=== PATIENT | male | born 1995 | race African-American/Black ===

== ENCOUNTER 2023-02-25 20:17 | Emergency (ER) | payer OTHER, SELFPAY ==
--- NOTE | ~2023-02-25 | XR_ITS ---
XR chest 2V DATE: 02/25/2023 20:42 INDICATION: Left-sided chest pain this evening TECHNIQUE: PA and lateral views COMPARISON: None FINDINGS: Normal heart size. No hilar or mediastinal enlargement. No pulmonary infiltrate or consolid ation, pleural effusion or pulmonary vascular congestion or pneumothorax. IMPRESSION: Negative Reviewed, dictated and finalized at location A. IMPRESSION: Negative
--- NOTE | 2023-02-25 20:18 | ECG_ITS ---
Measurements Intervals [place] Rate: 113 P: 59 MS: 130 QRS: 35 QRSD: 80 T: -9 QT: 312 QTc: 428 Interpretive Statements SINUS TACHYCARDIA BORDERLINE ST-T WAVE ABNORMALITY- ANTEROLAT/INF LEADS BASELINE ARTIFACT- I, II, III, AVR, AVL, AVF, V1-V2 ABNORMAL ECG NO PREVIOUS ECG AVAILABLE FOR COMPARISON Electronically Signed On 02-26-2023 6:18:22 CDT by Cyrus Licona D.O.
[2023-02-25 20:19] VITALS: BP 145/92; PULSE 84; RESP 18; TEMP 37; O2SAT 97
[2023-02-25 20:37] VITALS: PULSE 77
[2023-02-25 20:38] VITALS: O2SAT 100
[2023-02-25 20:41] LABS: Basophils Percent Auto 0.4 % (0.2-1.2); Eosinophils Absolute Auto 0.2 K/mm3 (0-0.3); Eosinophils Percent Auto 2.1 % (0-4.4); Hematocrit 43.8 % (42.0-52.0); Hemoglobin 14.8 g/dL (14.0-18.0); Immature Granulocyte Absolute 0.01 K/mm3 (0.00-0.031); Immature Granulocyte Percent A 0.1 % (0-0.5); Lymphocytes Absolute Auto 2.42 K/mm3 (0.9-3.2); Lymphocytes Percent Auto 33.3 % (18.3-44.2); Mean Corpuscular HGB Conc 33.8 g/dl (32-36); Mean Corpuscular Hemoglobin 30.5 pg (26-34); Mean Corpuscular Volume 90.3 fl (80-100); Mean Platelet Volume 9.3 fl (7.4-10.4); Monocytes Absolute Auto 0.6 K/mm3 (0.1-0.6); Monocytes Percent Auto 8.3 % (2.6-8.5); Neutrophils Absolute Auto 4.1 K/mm3 (1.3-6.7); Neutrophils Percent Auto 55.8 % (45.5-73.1); Platelet Count Result 278 k/mm3 (150-375); Red Blood Count 4.85 M/mm3 (4.6-6.20); Red Cell Distribution Width 11.5 % (11.5-14.5); White Blood Count 7.3 K/mm3 (4.5-10.0)
[2023-02-25 20:51] LABS: Alanine Aminotransferase 23 U/L (6-50); Albumin Level 4.6 g/dL (3.5-5.1); Alkaline Phosphatase 51 U/L (38-126); Anion Gap 6 mmol/L (8-16); Aspartate Amino Transferase 24 U/L (17-59); Bilirubin,Total 0.8 mg/dL (0.2-1.3); Blood Urea Nitrogen 13 mg/dL (9-20); Calcium 9.2 mg/dL (8.4-10.2); Carbon Dioxide 29 mmol/L (22-30); Chloride 105 mmol/L (98-107); Estimated CRCL calculation 132 ml/min; Estimated Glomerular Filt Rate > 60; Glucose 123 mg/dL (65-110); Lipase 63 U/L (23-300); Potassium 3.5 mmol/L (3.4-5.0); Prothrombin Time 13.3 Seconds (11.1-14.7); Sodium 140 mmol/L (137-145)
[2023-02-25 20:52] LABS: Partial Thromboplastin Time 30.8 SECONDS (22.3-36.8)
[2023-02-25 21:02] LABS: Troponin I < 0.012 ng/mL (0.000-0.034)
--- NOTE | 2023-02-25 21:49 | ED.CHESTPAIN ---
HPI - Chest Pain General Chief Complaint: Chest Pain Stated Complaint: cp Time Seen by Provider: 02/25/23 21:01 Source: patient Limitations: no limitations History of Present Illness HPI narrative: Patient is a 27-year-old male present to the emergency department complaining of left-sided chest pain that woke him up from sleep at 7:30 PM, points to his left anterior axillary region and notes that it radiated to his left proximal humerus region, feels like a burning and ache and lasted for 5 minutes and is since resolved and not returned. Patient admits to history of a similar sensation in the past when he slept wrong and has never been evaluated for that. Patient notes nothing was making the pain better or worse when he had it he did not try anything for the pain and it resolved on its own. Patient denies associated nausea, vomiting, shortness of breath, palpitations, numbness, weakness, abdominal pain, diarrhea, melena, medic easy, sore throat, congestion, rash, recent injuries, recent illness, fever, cough, diaphoresis. Patient denies tobacco use. Patient denies seeing a doctor on a regular basis. Patient denies family history of early heart disease. Patient denies unilateral lower extremity swelling or history of blood clots. Patient denies any recent strenuous activity and overall he feels well at this time. Related Data Allergies Allergy/AdvReac Type Severity Reaction Status Date / Time No Known Allergies Allergy Verified 02/25/23 21:39 Review of Systems Review of Systems: A 10 system review of systems was completed on the patient and is negative except for what is stated in the HPI. Nursing and ancillary documentation was reviewed. PMFSH Comments At time of signature, I have reviewed and agree with nursing past medical, surgical, social and family history unless otherwise noted. Please see the nursing chart for further information. There is no relevant family history pertinent to the presenting complaint. Patient admits to vaporizer use of nicotine. Exam Narrative: CONST: No acute distress. Well nourished. HENMT: Head is normocephalic and atraumatic. Moist mucous membranes. No posterior oropharynx erythema. EYES: No conjunctival icterus, injection, or pallor. PERRL. NECK: No meningeal signs. No JVD. RESP: Able to speak in full sentences. Normal respiratory effort. CTAB. CARDIO: Regular rate. Regular rhythm. 2+ DP and radial pulses bilaterally. CHEST: No chest wall tenderness to palpation or crepitus or deformities. No palpable lymphadenopathy of the axillary region. GI: Nondistended. No tenderness to palpation. Soft. : No CVA tenderness to palpation. SKIN: No rashes or lesions noted on exposed skin. NEURO: Oriented x3. Moves all extremities. Sensation intact to light touch throughout bilateral upper extremities. EXTREM: No pedal edema. Left upper extremity range of motion actively intact. 5 out of 5 motor strength in the bilateral upper extremities. PSYCH: Normal affect. Course Vital Signs Vital signs: Vital Signs Temperature 98.6 F 02/25/23 20:19 Pulse Rate 84 02/25/23 20:19 Respiratory Rate 18 02/25/23 20:19 Blood Pressure 145/92 H 02/25/23 20:19 Pulse Oximetry 97 02/25/23 20:19 Oxygen Delivery Room Air 02/25/23 20:19 Temperature 98.6 F 02/25/23 20:19 Pulse Rate 69 02/25/23 22:37 Respiratory Rate 20 02/25/23 22:37 Blood Pressure 120/81 02/25/23 22:37 Pulse Oximetry 99 02/25/23 22:37 Oxygen Delivery Room Air 02/25/23 20:38 MDM - Chest Pain MDM Narrative Medical decision making narrative: Patient presents with the above complaint. Initial vitals are remarkable for no significant abnormalities. Patient appears in no acute distress. Plan discussed: Laboratory analysis, EKG, imaging. Patient was given an aspirin 325 mg p.o. on arrival. Patient is not actively having any chest pain. Will obtain serial troponins x2. PERC criteria applied given
[2023-02-25 22:37] VITALS: BP 120/81; PULSE 69; RESP 20; O2SAT 99
[2023-02-26 01:31] LABS: Troponin I < 0.012 ng/mL (0.000-0.034)
[2023-02-26 01:49] VITALS: BP 130/96; PULSE 85; RESP 18; O2SAT 99
== END 2023-02-26 01:51 | disposition home or self-care (01) ==
PROVIDERS: Emergency Medicine; Emergency Provider Student in an Organized Health Care Education/Training Program
DX: R07.89 Other chest pain (principal); F17.290 Nicotine dependence, other tobacco product, uncomplicated; R00.0 Tachycardia, unspecified; R94.31 Abnormal electrocardiogram [ECG] [EKG]
CPT/HCPCS: 36415; 71046; 80053; 83690; 84484; 85025; 85610; 85730; 93005; 99284

== ENCOUNTER 2023-04-28 13:35 | Emergency (ER) | payer OTHER, SELFPAY ==
[2023-04-28] VITALS (11 sets, daily range): BP systolic 108–128; BP diastolic 75–89; PULSE 63–103; RESP 18–32; TEMP 36.4–36.7; O2SAT 93–100
--- NOTE | 2023-04-28 13:41 | ECG_ITS ---
Measurements Intervals [place] Rate: 74 P: 60 VA: 140 QRS: 44 QRSD: 88 T: 16 QT: 350 QTc: 390 Interpretive Statements SINUS RHYTHM ST ELEVATION IN ANTEROLAT/HIGH LAT LEADS, PROBABLY EARLY REPOLARIZATION BORDERLINE ECG COMPARED TO ECG 02/25/2023 20:22:49 SINUS RHYTHM NOW PRESENT Electronically Signed On 04-28-2023 20:02:00 RESOURCE COORDINATOR by Cyrus Licona D.O.
[2023-04-28 14:53] LABS: Basophils Percent Auto 0.4 % (0.2-1.2); Eosinophils Absolute Auto 0.1 K/mm3 (0-0.3); Eosinophils Percent Auto 1.1 % (0-4.4); Hematocrit 43.3 % (42.0-52.0); Hemoglobin 14.7 g/dL (14.0-18.0); Immature Granulocyte Absolute 0.03 K/mm3 (0.00-0.031); Immature Granulocyte Percent A 0.3 % (0-0.5); Lymphocytes Absolute Auto 1.47 K/mm3 (0.9-3.2); Mean Corpuscular HGB Conc 33.9 g/dl (32-36); Mean Corpuscular Hemoglobin 30.2 pg (26-34); Mean Corpuscular Volume 88.9 fl (80-100); Mean Platelet Volume 9.2 fl (7.4-10.4); Monocytes Absolute Auto 0.7 K/mm3 (0.1-0.6); Monocytes Percent Auto 5.9 % (2.6-8.5); Neutrophils Percent Auto 79.3 % (45.5-73.1); Platelet Count Result 270 k/mm3 (150-375); Red Blood Count 4.87 M/mm3 (4.6-6.20); Red Cell Distribution Width 11.7 % (11.5-14.5); White Blood Count 11.3 K/mm3 (4.5-10.0)
[2023-04-28 15:07] LABS: Alanine Aminotransferase 17 U/L (6-50); Albumin Level 4.3 g/dL (3.5-5.1); Alkaline Phosphatase 55 U/L (38-126); Anion Gap 8 mmol/L (8-16); Aspartate Amino Transferase 23 U/L (17-59); Bilirubin,Total 0.6 mg/dL (0.2-1.3); Blood Urea Nitrogen 8 mg/dL (9-20); Carbon Dioxide 27 mmol/L (22-30); Chloride 105 mmol/L (98-107); Estimated Glomerular Filt Rate > 60; Glucose 123 mg/dL (65-110); Magnesium 1.9 mg/dL (1.6-2.3); Potassium 3.7 mmol/L (3.4-5.0); Sodium 140 mmol/L (137-145)
[2023-04-28 15:19] LABS: Troponin I < 0.012 ng/mL (0.000-0.034)
[2023-04-28 15:37] LABS: Thyroid Stimulating Hormone 0.796 uIU/mL (0.465-4.680)
--- NOTE | 2023-04-28 16:09 | ED.ARRPALP ---
HPI - Arrhythmia/Palpitations General Chief Complaint: Arrhythmia/Palpitations Stated Complaint: elevated heart rate Time Seen by Provider: 04/28/23 14:20 Source: patient Mode of arrival: ambulatory Limitations: no limitations History of Present Illness HPI narrative: Patient is a 27 y/o male who presents to the ED with c/o palpitations. Patient reports he was walking on a bike trail today for about 15 minutes before he began to feel racing heart palpitations. He does note that he was walking at a somewhat brisk pace and does not walk on the trail frequently. He continued walking and noticed persistent palpitations with a burning sensation in his left arm. He then prompted here. He denies the symptoms currently. Denied having any chest pain with exertion, shortness of breath, pain in his left arm, dizziness/ lightheadedness, nausea, vomiting, lower extremity pain or swelling. He has never had symptoms like this before. Denies any recent illness. Denies family history of heart disease or sudden cardiac . Related Data Allergies Allergy/AdvReac Type Severity Reaction Status Date / Time No Known Allergies Allergy Verified 02/25/23 21:39 Review of Systems Review of Systems: CONSTITUTIONAL: Denies fever, chills, or sweats. CARDIOVASCULAR: See HPI RESPIRATORY: Denies cough or dyspnea. GASTROINTESTINAL: Denies abdominal pain, nausea, vomiting, or diarrhea. MUSCULOSKELETAL: Denies back pain, joint pain, or myalgia. All systems reviewed & are unremarkable except as noted in HPI and below Exam Narrative: GENERAL: Well appearing, well-nourished, non-toxic, in no acute distress. HEAD: Normocephalic, atraumatic. NECK: Supple. No adenopathy, no masses. RESPIRATORY: Airway patent, respirations nonlabored. Clear to auscultation bilaterally, no rales, rhonchi, wheezing. CARDIOVASCULAR: Regular rate and rhythm without murmurs, rubs, or gallops. Radial pulses 2+ and equal bilaterally. ABDOMINAL: Soft, nontender, nondistended, no hepatosplenomegaly. Normoactive BS. MUSCULOSKELETAL: Moves all extremities. Strength/ROM intact without gross deformities. No lower extremity edema. No calf tenderness. SKIN: Warm, dry, normal color. No rashes. NEURO: A&O X3. Speech clear. Cranial nerves II-XII grossly intact. Steady gait. No ataxic movements. PSYCHIATRIC: Appropriate mood and affect. Normal interaction. Course Vital Signs Vital signs: Vital Signs Temperature 97.7 F 04/28/23 13:55 Pulse Rate 66 04/28/23 13:55 Respiratory Rate 18 04/28/23 13:55 Blood Pressure 108/82 04/28/23 13:55 Pulse Oximetry 100 04/28/23 13:55 Oxygen Delivery Room Air 04/28/23 13:55 Temperature 97.8 F 04/28/23 17:51 Pulse Rate 101 H 04/28/23 17:51 Respiratory Rate 32 H 04/28/23 17:51 Blood Pressure 119/84 04/28/23 17:51 Pulse Oximetry 94 04/28/23 17:51 Oxygen Delivery Room Air 04/28/23 13:55 MDM - Arrhythmia/Palpitations MDM Narrative Medical decision making narrative: patient presented to ED with brief episode of racing heart palpitations while walking on a bike trail. Patient stable upon arrival. Heart rate in the 60-70s consistently. Asymptomatic by the time of my evaluation. Denies any acute complaints. Denied chest pain or shortness of breath. Basic laboratory studies obtained and fairly unremarkable. Normal electrolytes. Normal magnesium. TSH within normal limits. Minimal leukocytosis noted, however patient denies any recent infectious symptoms. EKG with normal sinus rhythm, nonspecific ST changes, likely early repolarization. Baseline troponin negative. 3HR troponin also negative. Patient updated on lab and imaging findings. He has remained asymptomatic and stable throughout ED stay. No tachycardia noted throughout ED stay. He will be discharged at this time and advised to f/u with PCP and/or Cardiology for further evaluation. Patient given strict return precautions. He agrees w/ the p
[2023-04-28 18:28] LABS: Troponin I < 0.012 ng/mL (0.000-0.034)
== END 2023-04-28 18:57 | disposition home or self-care (01) ==
PROVIDERS: Emergency Provider Physician Assistant
DX: R00.2 Palpitations (principal); R94.31 Abnormal electrocardiogram [ECG] [EKG]
CPT/HCPCS: 36415; 80053; 83735; 84443; 84484; 85025; 93005; 99284

== ENCOUNTER 2023-08-02 09:43 | Emergency (ER) | payer OTHER, SELFPAY ==
--- NOTE | ~2023-08-02 | XR_ITS ---
EXAMINATION: XR chest 1V portable INDICATION: Chest pain and shortness of breath TECHNIQUE: Portable AP chest at 1253 hours COMPARISON: 02/25/2023 FINDINGS: The lungs are free of acute opacities. No pleural effusion or pneumothorax. The cardiomedia stinal silhouette is normal. IMPRESSION: 1. No acute cardiopulmonary abnormality. Reviewed, dictated and finalized at location B. 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
[2023-08-02 09:55] VITALS: BP 140/88; PULSE 97; RESP 16; TEMP 36.6; O2SAT 97
--- NOTE | 2023-08-02 11:21 | ECG_ITS ---
Measurements Intervals [place] Rate: 89 P: 54 PA: 135 QRS: 53 QRSD: 85 T: 15 QT: 333 QTc: 405 Interpretive Statements SINUS RHYTHM EARLY REPOLARIZATION NORMAL ECG COMPARED TO ECG 04/28/2023 13:53:10 NO DIFFERENCE Electronically Signed On 08-02-2023 18:24:47 SUPERVISOR [employer]LOOR ASSEMBLY by José Osman M.D.
[2023-08-02 11:29] VITALS: RESP 17; O2SAT 99
--- NOTE | 2023-08-02 12:32 | ED.GENADULT ---
HPI - General Adult General Chief complaint: Unspecified Stated complaint: all over pain Time Seen by Provider: 08/02/23 11:58 History of Present Illness HPI narrative: 28-year-old male presenting with upper body pain. States that this morning he developed pain in both of his arms as well as his right upper back and his stomach. States that he also felt like his heart was racing. No shortness of breath or lightheadedness or nausea or vomiting. States that he had a bowel movement and his pain improved over the last few hours. He currently denies any pain. No leg swelling. No cough, sore throat, nasal congestion, fevers. States that this has happened before and his PCP is concerned he has IBS. He has an appointment coming up with them in about a month. Related Data Allergies Allergy/AdvReac Type Severity Reaction Status Date / Time No Known Allergies Allergy Verified 02/25/23 21:39 Review of Systems Review of Systems: All systems reviewed & are unremarkable except as noted in HPI and below Exam Narrative: GENERAL: Well-appearing, In no acute distress, pleasant and cooperative HEAD: Normocephalic, atraumatic. EYES: PERRLA and EOMI. ENT: Mucous membranes moist. NECK: Supple. CHEST: Clear to auscultation. No respiratory distress. HEART: Regular rate and rhythm. No murmur heard. ABDOMEN: Soft, nontender, nondistended EXTREMITIES: Normal range of motion. No edema. SKIN: Warm, dry, no rash. NEURO: No focal deficits. Alert and oriented x3. PSYCH: Normal mood and affect. Course Vital Signs Vital signs: Vital Signs Temperature 97.8 F 08/02/23 09:55 Pulse Rate 97 08/02/23 09:55 Respiratory Rate 16 08/02/23 09:55 Blood Pressure 140/88 08/02/23 09:55 Pulse Oximetry 97 08/02/23 09:55 Temperature 98.4 F 08/02/23 13:40 Pulse Rate 63 08/02/23 14:06 Respiratory Rate 15 08/02/23 14:06 Blood Pressure 121/85 08/02/23 14:06 Pulse Oximetry 100 08/02/23 14:06 Medical Decision Making [facility] Narrative Medical decision making narrative: 28-year-old male presenting with upper body pain that has since resolved. Vitals are stable. Exam is unremarkable. EKG per my interpretation shows normal sinus rhythm with benign early repolarization. It appears similar to prior EKGs in our system. Patient is currently asymptomatic, declines pain medications. Will check basic labs, chest x-ray. Chest x-ray blood work without abnormalities. Troponin is undetectable. Patient is resting comfortably on re-evaluation. Continues to deny pain. He has an appointment coming up with his PCP. Feel he is safe for outpatient management. Discussed appropriate supportive care. He is agreeable with this plan. Discharged in stable condition. Differential Diagnosis Differential Diagnosis: Musculoskeletal pain, chest pain, back pain, arm pain Medical Records Medical records reviewed: Yes I reviewed the external patient's medical records. Vital Signs Vital Signs: Vital Signs Temperature 97.8 F 08/02/23 09:55 Pulse Rate 97 08/02/23 09:55 Respiratory Rate 16 08/02/23 09:55 Blood Pressure 140/88 08/02/23 09:55 Pulse Oximetry 97 08/02/23 09:55 Temperature 98.4 F 08/02/23 13:40 Pulse Rate 63 08/02/23 14:06 Respiratory Rate 15 08/02/23 14:06 Blood Pressure 121/85 08/02/23 14:06 Pulse Oximetry 100 08/02/23 14:06 Lab Data Lab results reviewed: Yes I reviewed the patient's lab results. 08/02/23 13:09 08/02/23 13:09 Labs: Lab Results 08/02/23 Range/Units 13:09 WBC 7.6 (4.5-10.0) K/mm3 RBC 5.03 (4.6-6.20) M/mm3 Hgb 15.4 (14.0-18.0) g/dL Hct 45.1 (42.0-52.0) % MCV 89.7 (80-100) fl MCH 30.6 (26-34) pg MCHC 34.1 (32-36) g/dl RDW 11.8 (11.5-14.5) % Plt Count 282 (150-375) k/mm3 MPV 9.3 (7.4-10.4) fl Immature Gran % (Auto) 0.1 (0-0.5) % Neut % (Auto) 61.9 (45.5-73.1) % Lymph % (Auto) 27.8 (
[2023-08-02 13:24] LABS: Basophils Absolute Auto 0.1 K/mm3 (0.0-0.1); Basophils Percent Auto 0.8 % (0.2-1.2); Eosinophils Absolute Auto 0.2 K/mm3 (0-0.3); Eosinophils Percent Auto 2.4 % (0-4.4); Hematocrit 45.1 % (42.0-52.0); Hemoglobin 15.4 g/dL (14.0-18.0); Immature Granulocyte Absolute 0.01 K/mm3 (0.00-0.031); Immature Granulocyte Percent A 0.1 % (0-0.5); Lymphocytes Absolute Auto 2.12 K/mm3 (0.9-3.2); Lymphocytes Percent Auto 27.8 % (18.3-44.2); Mean Corpuscular HGB Conc 34.1 g/dl (32-36); Mean Corpuscular Hemoglobin 30.6 pg (26-34); Mean Corpuscular Volume 89.7 fl (80-100); Mean Platelet Volume 9.3 fl (7.4-10.4); Monocytes Absolute Auto 0.5 K/mm3 (0.1-0.6); Neutrophils Absolute Auto 4.7 K/mm3 (1.3-6.7); Neutrophils Percent Auto 61.9 % (45.5-73.1); Platelet Count Result 282 k/mm3 (150-375); Red Blood Count 5.03 M/mm3 (4.6-6.20); Red Cell Distribution Width 11.8 % (11.5-14.5); White Blood Count 7.6 K/mm3 (4.5-10.0)
[2023-08-02 13:27] LABS: Alanine Aminotransferase 16 U/L (6-50); Albumin Level 4.5 g/dL (3.5-5.1); Alkaline Phosphatase 63 U/L (38-126); Anion Gap 7 mmol/L (8-16); Aspartate Amino Transferase 23 U/L (17-59); Bilirubin,Total 0.6 mg/dL (0.2-1.3); Blood Urea Nitrogen 12 mg/dL (9-20); Calcium 9.5 mg/dL (8.4-10.2); Carbon Dioxide 27 mmol/L (22-30); Chloride 106 mmol/L (98-107); Estimated CRCL calculation 117 ml/min; Estimated Glomerular Filt Rate > 60; Glucose 96 mg/dL (65-110); Lipase 59 U/L (23-300); Potassium 4.2 mmol/L (3.4-5.0); Sodium 140 mmol/L (137-145)
[2023-08-02 13:39] LABS: Troponin I < 0.012 ng/mL (0.000-0.034)
[2023-08-02 13:40] VITALS: BP 120/87; PULSE 69; RESP 15; TEMP 36.9; O2SAT 100
[2023-08-02 14:06] VITALS: BP 121/85; PULSE 63; RESP 15; O2SAT 100
== END 2023-08-02 14:07 | disposition home or self-care (01) ==
PROVIDERS: Emergency Provider Emergency Medicine; PCP Internal Medicine
DX: M79.602 Pain in left arm (principal); M79.601 Pain in right arm; R00.2 Palpitations
CPT/HCPCS: 36415; 71045; 80053; 83690; 84484; 85025; 93005; 99284

== ENCOUNTER 2023-08-18 23:06 | Emergency (ER) | payer OTHER, SELFPAY ==
--- NOTE | ~2023-08-18 | XR_ITS ---
Portable chest x-ray Comparison: 08/02/2023 Clinical History: Dyspnea Findings: Lungs are clear, without focal consolidation or pleural effusion. Cardiomediastinal silho uette is stable. Bones and soft tissues are unremarkable. Impression: Normal chest. Reviewed, dictated and finalized at location . Impression: Normal chest.
[2023-08-18 23:10] VITALS: BP 130/85; PULSE 68; RESP 16; TEMP 36.7; O2SAT 98
[2023-08-18 23:15] VITALS: PULSE 67
--- NOTE | 2023-08-18 23:15 | ECG_ITS ---
Measurements Intervals [place] Rate: 81 P: 67 HI: 140 QRS: 57 QRSD: 89 T: 42 QT: 352 QTc: 409 Interpretive Statements SINUS RHYTHM ST ELEVATION IN DIFFUSE LEADS- PROBABLY EARLY REPOLARIZATION BORDERLINE ECG COMPARED TO ECG 08/02/2023 11:26:13 NO SIGNIFICANT CHANGES Electronically Signed On 08-19-2023 6:21:48 CDT by Cyrus Licona D.O.
[2023-08-18 23:16] VITALS: BP 119/89; PULSE 65; RESP 16; O2SAT 98
--- NOTE | 2023-08-18 23:16 | PC.NURSE ---
Patient states he has bi-lateral arm burning and tingling.
[2023-08-19 00:15] LABS: Basophils Percent Auto 0.5 % (0.2-1.2); Eosinophils Absolute Auto 0.2 K/mm3 (0-0.3); Eosinophils Percent Auto 2.2 % (0-4.4); Hematocrit 40.9 % (42.0-52.0); Immature Granulocyte Absolute 0.02 K/mm3 (0.00-0.031); Immature Granulocyte Percent A 0.2 % (0-0.5); Lymphocytes Absolute Auto 1.93 K/mm3 (0.9-3.2); Lymphocytes Percent Auto 22.1 % (18.3-44.2); Mean Corpuscular HGB Conc 34.2 g/dl (32-36); Mean Corpuscular Hemoglobin 30.4 pg (26-34); Mean Corpuscular Volume 88.9 fl (80-100); Mean Platelet Volume 9.5 fl (7.4-10.4); Monocytes Absolute Auto 0.6 K/mm3 (0.1-0.6); Monocytes Percent Auto 7.2 % (2.6-8.5); Neutrophils Absolute Auto 5.9 K/mm3 (1.3-6.7); Neutrophils Percent Auto 67.8 % (45.5-73.1); Platelet Count Result 266 k/mm3 (150-375); Red Cell Distribution Width 11.7 % (11.5-14.5); White Blood Count 8.7 K/mm3 (4.5-10.0)
[2023-08-19 00:26] LABS: INR 1.1; Partial Thromboplastin Time 32.4 Seconds (22.3-36.8); Prothrombin Time 14.1 Seconds (11.1-14.7)
[2023-08-19 00:31] LABS: Alanine Aminotransferase 13 U/L (6-50); Albumin Level 4.1 g/dL (3.5-5.1); Alkaline Phosphatase 54 U/L (38-126); Anion Gap 5 mmol/L (8-16); Aspartate Amino Transferase 20 U/L (17-59); Bilirubin,Total 0.5 mg/dL (0.2-1.3); Blood Urea Nitrogen 10 mg/dL (9-20); Calcium 9.1 mg/dL (8.4-10.2); Carbon Dioxide 25 mmol/L (22-30); Chloride 107 mmol/L (98-107); Estimated CRCL calculation 116 ml/min; Estimated Glomerular Filt Rate > 60; Glucose 112 mg/dL (65-110); Potassium 3.9 mmol/L (3.4-5.0); Sodium 137 mmol/L (137-145)
[2023-08-19 00:41] LABS: Troponin I < 0.012 ng/mL (0.000-0.034)
--- NOTE | 2023-08-19 00:52 | ED.GENADULT ---
HPI - General Adult General Chief complaint: Unspecified Stated complaint: bilat arms weak and burning, sob Time Seen by Provider: 08/18/23 23:42 Source: patient Mode of arrival: ambulatory Limitations: no limitations History of Present Illness HPI narrative: This is a 28 year old male who presents to the ED with chief complaint of sudden onset bilateral arm pain and burning after waking up this evening. States he woke up to answer a phone call and then shortly after started to develop his symptoms. He states that he also had onset of dyspnea and felt like it was hard to take a deep breath. He states that this went away after about 15 minutes. He states that the arm burning has since resolved. He also had some nausea at the time of symptom onset that has since resolved. Denies any associated chest pain. Denies syncope, vomiting, back pain, cough or recent illness. Related Data Allergies Allergy/AdvReac Type Severity Reaction Status Date / Time No Known Allergies Allergy Verified 02/25/23 21:39 Review of Systems Review of Systems: All systems as dictated in HPI Exam Narrative: GENERAL: Well-appearing, well-nourished, and in no acute distress. HEAD: Normocephalic, atraumatic. EYES: PERRLA and EOMI. ENT: Nares clear, no rhinorrhea or epistaxis. Mucous membranes moist. Oropharynx without tonsillar hypertrophy exudate or other lesions. NECK: Supple. No adenopathy or masses. CHEST: No respiratory distress. Clear to auscultation. No wheezes rales or rhonchi HEART: Regular rate and rhythm. No murmur heard. Normal peripheral pulses. ABDOMEN: Soft, nontender, nondistended, normal active bowel sounds. MSK: Normal range of motion. No edema. SKIN: Warm, dry, no rash. NEURO: Alert and oriented x3. No focal deficits. PSYCH: Normal mood and affect. Course Vital Signs Vital signs: Vital Signs Temperature 98.1 F 08/18/23 23:10 Pulse Rate 68 08/18/23 23:10 Respiratory Rate 16 08/18/23 23:10 Blood Pressure 130/85 08/18/23 23:10 Pulse Oximetry 98 08/18/23 23:10 Oxygen Delivery Room Air 08/18/23 23:10 Temperature 97.9 F 08/19/23 01:13 Pulse Rate 60 08/19/23 01:13 Respiratory Rate 18 08/19/23 01:13 Blood Pressure 115/75 08/19/23 01:13 Pulse Oximetry 99 08/19/23 01:13 Oxygen Delivery Room Air 08/18/23 23:10 Medical Decision Making MDM Narrative Medical decision making narrative: This is a 28-year-old male who presents to the ED with chief complaint of sudden-onset shortness of breath burning and nausea. Vitals are normal. Exam is benign. He is asymptomatic by the time that I evaluate the patient. EKG shows diffuse ST elevation with J-point transition. Consistent with early repolarization. Chest x-ray preliminary is unremarkable. Lab work also unremarkable. Troponin normal. Patient is completely symptom free without intervention at this point would like to go home. Pt will be discharged in stable condition. Return precautions given and supportive measures discussed. Pt is understanding and agreeable with plan for discharge and follow-up with PCP. Vital Signs Vital Signs: Vital Signs Temperature 98.1 F 08/18/23 23:10 Pulse Rate 68 08/18/23 23:10 Respiratory Rate 16 08/18/23 23:10 Blood Pressure 130/85 08/18/23 23:10 Pulse Oximetry 98 08/18/23 23:10 Oxygen Delivery Room Air 08/18/23 23:10 Temperature 97.9 F 08/19/23 01:13 Pulse Rate 60 08/19/23 01:13 Respiratory Rate 18 08/19/23 01:13 Blood Pressure 115/75 08/19/23 01:13 Pulse Oximetry 99 08/19/23 01:13 Oxygen Delivery Room Air 08/18/23 23:10 Lab Data 08/19/23 00:03 08/19/23 00:03 Labs: Lab Results 08/19/23 Range/Units 00:03 WBC 8.7 (4.5-10.0) K/mm3 RBC 4.60 (4.6-6.20) M/mm3 Hgb 14.0 (14.0-18.0) g/dL Hct 40.9 L (42.0-52.0) % MCV 88.9 (80-100) fl MCH 30.4 (26-34) pg MCHC 34.2 (32-36) g/dl RDW 11.7
[2023-08-19 01:13] VITALS: BP 115/75; PULSE 60; RESP 18; TEMP 36.6; O2SAT 99
== END 2023-08-19 01:14 | disposition home or self-care (01) ==
PROVIDERS: Emergency Provider Physician Assistant; PCP Internal Medicine
DX: F41.9 Anxiety disorder, unspecified (principal)
CPT/HCPCS: 36415; 71045; 80053; 84484; 85025; 85610; 85730; 93005; 99284

== ENCOUNTER 2024-02-05 20:29 | Emergency (ER) | payer OTHER, SELFPAY ==
--- NOTE | ~2024-02-05 | XR_ITS ---
Portable chest x-ray Comparison: 08/18/2023 Clinical History: Cough Findings: Lungs are clear, without focal consolidation or pleural effusion. Cardiomediastinal silho uette is stable. Bones and soft tissues are unremarkable. Impression: Normal chest. Reviewed, dictated and finalized at location . Impression: Normal chest.
[2024-02-05 20:33] VITALS: BP 129/84; PULSE 95; RESP 18; TEMP 37.3; O2SAT 100
[2024-02-05 21:19] LABS: Strep Group A RT-PCR DETECTED (Negative)
[2024-02-05 21:34] LABS: Influenza A QL RT-PCR Negative (Negative); Influenza B QL RT-PCR Negative (Negative); RSV RNA, RT-PCR Negative (Negative); SARS-CoV-2 RNA PCR Negative (Negative)
[2024-02-05 23:02] VITALS: BP 121/90; PULSE 84; RESP 18; O2SAT 100
--- NOTE | 2024-02-05 23:08 | ED.GENADULT ---
HPI - General Adult General Chief complaint: Upper Respiratory Infection Stated complaint: sore throat Time Seen by Provider: 02/05/24 20:33 History of Present Illness HPI narrative: This is a 28-year-old male presenting ED with chief complaint of sore throat. He has been having progressively worse pain on swallowing over last several days. He is still handling his own secretions. He denies fevers nausea or vomiting. No shortness of breath. Believes he has strep throat Related Data Allergies Allergy/AdvReac Type Severity Reaction Status Date / Time No Known Allergies Allergy Verified 02/05/24 21:02 Exam Narrative: APPEARANCE: No apparent distress. Head: Bilateral erythematous tonsils with exudates, uvula is midline EYES: EOMI, NOSE: Atraumatic NECK: Trachea midline RESPIRATORY: No increased rate of breathing, CTAB CARDIOVASCULAR: RRR, ABDOMINAL: Non-distended MUSCULOSKELETAl: No obvious deformities NEURO: Alert. Moving 4/4 extremities SKIN:: Warm, dry. Normal color PSYCHIATRIC: Normal affect Course Vital Signs Vital signs: Vital Signs Temperature 99.1 F 02/05/24 20:33 Pulse Rate 95 02/05/24 20:33 Respiratory Rate 18 02/05/24 20:33 Blood Pressure 129/84 02/05/24 20:33 Pulse Oximetry 100 02/05/24 20:33 Oxygen Delivery Room Air 02/05/24 20:33 Temperature 99.1 F 02/05/24 20:33 Pulse Rate 84 02/05/24 23:02 Respiratory Rate 18 02/05/24 23:02 Blood Pressure 121/90 02/05/24 23:02 Pulse Oximetry 100 02/05/24 23:02 Oxygen Delivery Room Air 02/05/24 20:33 Medical Decision Making MDM Narrative Medical decision making narrative: -Course: 20-year-old male presenting with sore throat. Strep positive. Patient discharged with return precautions and pcp f/u -DDX includes but is not limited to: Strep throat, viral pharyngitis, mOno -Interventions: Amoxicillin, dexamethasoneToradol, Tylenol -Shared decision making / Disposition: discharge -RX amoxicillin, Motrin, Tylenol Vital Signs Vital Signs: Vital Signs Temperature 99.1 F 02/05/24 20:33 Pulse Rate 95 02/05/24 20:33 Respiratory Rate 18 02/05/24 20:33 Blood Pressure 129/84 02/05/24 20:33 Pulse Oximetry 100 02/05/24 20:33 Oxygen Delivery Room Air 02/05/24 20:33 Temperature 99.1 F 02/05/24 20:33 Pulse Rate 84 02/05/24 23:02 Respiratory Rate 18 02/05/24 23:02 Blood Pressure 121/90 02/05/24 23:02 Pulse Oximetry 100 02/05/24 23:02 Oxygen Delivery Room Air 02/05/24 20:33 Lab Data Labs: Lab Results 02/05/24 Range/Units 20:39 Influenza A (RT-PCR) Negative (Negative) Influenza B (RT-PCR) Negative (Negative) RSV (RT-PCR) Negative (Negative) SARS-CoV-2 RNA (RT-PCR) Negative (Negative) Group A Strep (PCR) Detected A (Negative) Discharge Plan Discharge Clinical Impression: Strep pharyngitis Patient Disposition: Home, Self-Care Condition: Stable Instructions: Antibiotic Form, Strep Throat (ED) Additional Instructions: Please take amoxicillin as directed. Please take Motrin Tylenol for pain. If you develop difficulty swallowing her own secretions shortness of breath or feel like her throat is getting worse please return to the ED immediately. Prescriptions: New amoxicillin 500 mg capsule 500 mg PO Q12H Qty: 20 0RF Follow-up/Referrals: Naun,MD Claudia [Primary Care Provider] -
[2024-02-05] MEDS: KETOROLAC 30 MG/ML VIAL (*BKC) IM (23:23)
[2024-02-05] MEDS: ACETAMINOPHEN 500 MG TABLET 1000 MG PO (23:24)
[2024-02-05] MEDS: dexAMETHasone SOD PHOS INJ 10 MG/ML 1 ML VIAL IM (23:24)
[2024-02-05] MEDS: AMOXICILLIN 500 MG CAPSULE PO (23:24)
== END 2024-02-05 23:29 | disposition home or self-care (01) ==
PROVIDERS: Emergency Provider Emergency Medicine; PCP Internal Medicine
DX: J02.0 Streptococcal pharyngitis (principal); Z20.822 Contact with and (suspected) exposure to COVID-19
CPT/HCPCS: 71045; 87637; 87651; 96372; 99284; A9270; J1100; J1885

== ENCOUNTER 2024-08-18 21:29 | Emergency (ER) | payer OTHER, SELFPAY ==
--- OUTSIDE RECORDS SUMMARY | 2024-08-18 21:30 | XMS_ITS | Clinical Summary ---
Author Organization [address] Address [address] [place] [address] Care Team Providers Care Chef Concierge Name Role Phone No, Physician Primary Care Provider [phone] Allergies No known active allergies Medications amoxicillin-cla vulanate (AUGMENTIN) 875-125 mg per tablet Take 1 tablet by mouth every 12 (twelve) hours 14 tablet 2 Active meclizine (ANTIVERT) 25 mg tablet Take 1 tablet (25 mg total) by mouth 3 (three) times a day as needed for dizziness 30 tablet 2 Active ondansetron (ZOFRAN) 4 mg tablet Take 1 tablet (4 mg total) by mouth every 6 (six) hours as needed for nausea or vomiting 28 tablet 2 Active Social History Tobacco Use Types Packs/Day Years Used Date Smoking Tobacco: Never Assessed Personal Safety Answer Date Recorded Getting School Help Needed Not on file 05/18 Sex and Gender Information Value Date Recorded Sex Assigned at Not on file 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 Gender Identity Not on file Sexual Orientation Not on file Last Filed Vital Signs Vital Sign Reading Time Taken Comments Blood Pressure 109/77 09/22/2021 12:08 PM CDT Pulse 60 09/22/2021 12:08 PM CDT Temperature 37 C (98.6 F) 09/22/2021 12:08 PM CDT Respiratory Rate 20 09/22/2021 12:08 PM CDT Oxygen Saturation 100% 09/22/2021 12:08 PM CDT Inhaled Oxygen Concentration - - Weight 86.9 kg (191 lb 9.3 oz) 09/22/2021 12:08 PM CDT Height 172.7 cm (5' 8 ) 09/22/2021 12:08 PM CDT Body Mass Index 29.13 09/22/2021 12:08 PM CDT Plan of Treatment Health Maintenance Due Date Last Done Comments Depression Screening 1995 Hepatitis C Screening 1995 Varicella Vaccines (2 of 2 - 2-dose childhood series) 1999 04/04/1998 DTaP/Tdap/Td Vaccine (5 - Tdap) 2006 04/04/1998, 01/10/1996, 1995, Additional history exists Regular Well Visit/Exam 18-64 2013 Influenza Vaccine (#1) 2024 Hepatitis B Screening Completed 04/26/1996 , 1995, 1995 HPV Vaccines Aged Out No longer eligi ble based on patient's age to complete this topic Pneumococcal vaccine <65 Aged Out No longer eligible based on patient's age to complete this topic Insurance [id number] [place] [address] [facility] Care Teams Chef Concierge Relationship Specialty Start Date End Date No, Physician PCP - General 11/01/19
--- OUTSIDE RECORDS SUMMARY | 2024-08-18 21:30 | XMS_ITS | Referral Summary ---
Author Organization [address] Address [address] [place] [address] Care Team Providers Care Tech Ed/Woodshop Teacher Name Role Phone No, Physician Primary Care Provider [phone] Allergies No known active allergies Medications amoxicillin-cla [...] on file Legal Sex Male 7:00 PM MANAGER SHAREPOINT Gender Identity Not on file Sexual Orientation [...] 09/22/2021 12:08 PM CDT Plan of Treatment Not on file Insurance Care Teams Tech Ed/Woodshop Teacher Relationship Specialty Start Date End Date No, Physician PCP - General 11/01/19
--- OUTSIDE RECORDS SUMMARY | 2024-08-18 21:30 | XMS_ITS | Encounter Summary ---
Author Organization [facility] Address [address] [place] [address] Care Team Providers Care Site Acquisition Manager Name Role Phone Claudia Magallon MD Primary Care Provider [phone] Encounter Details Date Type Department Care Team (Late st Contact Info) Description 10/25/2023 Dayjet Message Enc [address] [address] [address] [place] [address] [facility] Provider transportation Social History Tobacco Use Types Packs/Day Years Used Date Smoking Tobacco: Never Smokeless Tobacco: Never Comments:Counseled by Dr Madiha flores. Alcohol Use Standard Drinks/Week Comments No 0 (1 standard drink = 0.6 oz pur e alcohol) PHQ-2 Answer Date Recorded Patient Health Questionnaire-2 Score 0 10/11/2023 Sex and Gender Information Value Date Recorded Sex Assigned at Male 08/09/2023 8:17 AM GROUP MARKETING VP Legal Sex Male 5:04 PM CDT Gender Identity Male 08/09/2023 8:17 AM GROUP MARKETING VP Sexual Orientation Straight 08/09/2023 8: 17 AM GROUP MARKETING VP documented as of this encounter Plan of Treatment Upcoming Encounters Date Type Department Care Team (Late st Contact Info) Description 08/22/2024 3:40 PM CDT [facility] [address] [place], [place] [id number] Claudia Magallon MD [address] [place] [address] [address] [place], [place] [id number] documented as of this encounter Visit Diagnoses Not on filedocumented in this encounter Additional Health Concerns Assessment Noted Time PHQ-9 Depression Total Score: 1 10/11/19 10:23 AM CDT documented as of this encounter Care Teams Site Acquisition Manager Relationship Specialty Start Date End Date Claudia Magallon MD [address] [address] PCP - General INTERNAL MEDICINE 08/13/23 documented as of this encounter
--- OUTSIDE RECORDS SUMMARY | 2024-08-18 21:30 | XMS_ITS | Clinical Summary ---
Author Organization [facility] Address [address] [place] [address] Care Team Providers Care Aquatics Lifeguard Name Role Phone Claudia Magallon MD Primary Care Provider Allergies Active Allergy Reactions Criticality Noted Date Comments Pork-Derived Products GI Upset 06/16/2017 Medications FLUoxetine (PROZAC) 10 MG capsuleIndications :Mild episode of recurrent major depressive disorder,Anxiety Take 1 capsule (10 mg total) by mouth daily. 90 capsule 4 Active omeprazole (PRILOSEC) 40 MG capsuleIndications :Gastroesophageal reflux disease without esophagitis Take 1 capsule (40 mg total) by mouth daily. 90 capsule 4 Active ondansetron (ZOFRAN-ODT) 4 MG disintegrating tabletIndications: Vertigo,Nausea and vomiting, unspecified vomiting type DISSOLVE 1 TABLET(4 MG) ON THE TONGUE EVERY 6 HOURS NEEDED 30 tablet 4 Active meclizine (ANTIVERT) 25 MG tabletIndications: Vertigo TAKE 1 TABLET(25 MG) BY MOUTH THREE TIMES DAILY NEEDED FOR DIZZINESS 30 tablet 4 Active Active Problems No known active problems Encounters Date Type Department Care Team Description 05/26/2024 2:20 PM SUPERVISOR RIPRAP PLACING [facility] [place] [address] [facility] [address] [place] [address] Audrey Albrecht, MARTINE Dizziness; Vomiting 05/26/2024 Orders Only [place] [address] [facility] [address] [place] [address] Claudia Magallon MD 05/26/2024 Telephone [facility] Multispecialty Care - [address] [facility] [address] [place] [address] Claudia Magallon MD Medication 05/26/2024 Travel from Last 3 Months Immunizations Name Administration Dates Next Due Dtap 04/04/1998 Dtp 01/10/1996,1995,1995 Hepatitis B (Generic Peds) 04/26/1996,1995 ,1995 Hib (Generic) 04/04/1998,01/10/1996,1995 ,1995 MMR 08/18/1996 Opv 04/04/1998,1995,1995 Tdap (Generic) 11/17/2018 Varicella (Generic) 04/04/1998 Family History Medical History Relation Comments Heart Disease Father None Mother Relation Status Comments Father Alive Mother Alive Social History Tobacco Use Types Packs/Day Years Used Date Smoking Tobacco: Never Smokeless Tobacco: Never Tobacco Cessation:Counseling Given: Not Answered Comments:Counseled by Dr Magallon. Alcohol Use Standard Drinks/Week Comments No 0 (1 standard drink = 0.6 oz pur e alcohol) PHQ-2 Answer Date Recorded Patient Health Questionnaire-2 Score 0 10/11/2023 Sex and Gender Information Value Date Recorded Sex Assigned at Male 08/09/2023 8:17 AM SUPERVISOR RIPRAP PLACING Legal Sex Male 5:04 PM CDT Gender Identity Male 08/09/2023 8:17 AM SUPERVISOR RIPRAP PLACING Sexual Orientation Straight 08/09/2023 8: 17 AM SUPERVISOR RIPRAP PLACING Last Filed Vital Signs Vital Sign Reading Time Taken Comments Blood Pressure 115/82 05/26/2024 1:51 PM SUPERVISOR RIPRAP PLACING Pulse 75 05/26/2024 1:51 PM SUPERVISOR RIPRAP PLACING Temperature 36.8 C (98.3 F) 05/26/2024 1:51 PM SUPERVISOR RIPRAP PLACING Respiratory Rate 18 05/26/2024 1:51 PM SUPERVISOR RIPRAP PLACING Oxygen Saturation 97% 05/26/2024 1:51 PM SUPERVISOR RIPRAP PLACING Inhaled Oxygen Concentration - - Weight 93 kg (205 lb) 05/26/2024 1:51 PM SUPERVISOR RIPRAP PLACING Height 172.7 cm (5' 8 ) 05/26/2024 1:51 PM SUPERVISOR RIPRAP PLACING Body Mass Index 31.17 05/26/2024 1:51 PM SUPERVISOR RIPRAP PLACING Plan of Treatment Upcoming Encounters Date Type Department Care Team (Late st Contact Info) Description 08/22/2024 3:40 PM CDT Office Visit [facility] Multispecialty Care - [place] [address] [address] [address] [place] [address] Claudia aMgallon MD 118[address] [facility] [address] [place] [address] Health Maintenance Due Date Last Done Comments COVID-19 Vaccine ( season) 2024 Influenza Adult (#1) 2024 PHQ-2 (Physician [place]) 06/07/2024 10/11/2023 Annual Physical 08/12/2024 08/13/2023 DTaP, Tdap and Td Vaccines (3 - Td or Tdap) 11/17/2028 11/17/2018, 04/04/1998, 01/10/1996, Additional history exists Hepatitis B Vaccines Completed 04/26/1996, 1995, 1995 Hepatitis C Completed 08/13/2023 HPV Vaccines Aged Out No longer eligi ble based on patient's age to complete this topic Meningococcal B Vaccine Aged Out No l onger eligible based on patient's age to complete this topic Meningococcal Vaccine Aged Out No flaco gab eligible based on patient's age to complete this topic Pneumococcal Vaccine: Pediatrics (0 to 5 Years) and At-Risk Patients (6 to 64 Years) Aged Out No longer eligible based on patient's age to complete this topic RSV Immunizations Under 20 Months Aged Out No longer eligible based on patient's age to complete this topic Procedures Procedure Name Priority Date/Time Associated Diagnosis Comments HEPATITIS C ANTIBODY Routine 08/13/2023 7:35 AM SUPERVISOR RIPRAP PLACING Annual physical exam General medical exam Establishing care with new doctor, encounter for Encounter for hepatitis C screening test for low risk patient from Last 3 Months or Most Recently Relevant to Health Maintenance Results * HEPATITIS C ANTIBODY (08/13/2023 7:35 AM SUPERVISOR RIPRAP PLACING) HEPATITIS C AB NON-REACTI VE NON-REACT ASHWINI 08/13/2023 6:25 PM SUPERVISOR RIPRAP PLACING [facility] Comment: ANTIBODIES TO HCV NOT DETECTED. DOES NOT EXCLUDE THE POSSIBILITY OF EXPOSURE TO HCV. 08/13/2023 7:35 AM SUPERVISOR RIPRAP PLACING Claudia Magallon MD LABORATORY Final Result [facility] [address] [place] [address], [place] [phone] [id number] from Last 3 Months or Most Recently Relevant to Health Maintenance Insurance [address] [place] [address] [employer] Care Teams Aquatics Lifeguard Relationship Specialty Start Date End Date Claudia Magallon MD [address] [facility] [address] [place] [address] PCP - General INTERNAL MEDICINE 08/13/23
--- OUTSIDE RECORDS SUMMARY | 2024-08-18 21:30 | XMS_ITS | Encounter Summary ---
Author Organization [facility] Address [address] [place] [address] Care Team Providers Care Residential Direct Support Professional Name Role Phone Claudia Magallon MD Primary Care Provider [phone] Encounter Details Date Type Department Care Team (Late st Contact Info) Description 09/30/2023 MyChart Message Enc [address] [address] Claudia Magallon MD [address] [place] [address] [phone] Hello Social History Tobacco Use Types Packs/Day Years Used Date Smoking Tobacco: Never Smokeless Tobacco: Never Comments:Counseled by Dr Madiha flores. Alcohol Use Standard Drinks/Week Comments No 0 (1 standard drink = 0.6 oz pur e alcohol) PHQ-2 Answer Date Recorded Patient Health Questionnaire-2 Score 4 08/13/2023 Sex and Gender Information Value Date Recorded Sex Assigned at Male 08/09/2023 8:17 AM HEAT TREATING FURNACE TENDER Legal Sex Male 5:04 PM CDT Gender Identity Male 08/09/2023 8:17 AM HEAT TREATING FURNACE TENDER Sexual Orientation Straight 08/09/2023 8: 17 AM HEAT TREATING FURNACE TENDER documented as of this encounter Plan of Treatment Upcoming Encounters Date Type Department Care Team (Late st Contact Info) Description 08/22/2024 3:40 PM CDT [facility] [address] [address] [place], [place] [id number] Claudia Magallon MD [address] [address] documented as of this encounter Visit Diagnoses Not on filedocumented in this encounter Additional Health Concerns Assessment Noted Time PHQ-9 Depression Total Score: 11 08/12/ 024 7:27 AM HEAT TREATING FURNACE TENDER documented as of this encounter Care Teams Residential Direct Support Professional Relationship Specialty Start Date End Date Claudia Magallon MD [address] [address] PCP - General INTERNAL MEDICINE 08/13/23 documented as of this encounter
--- OUTSIDE RECORDS SUMMARY | 2024-08-18 21:30 | XMS_ITS | Encounter Summary ---
Author Organization [facility] Address [address] [place] [address] Care Team Providers Care Ingredient Scaler Helper Name Role Phone Claudia Magallon MD Primary Care Provider [phone] Encounter Details Date Type Department Care Team (Late st Contact Info) Description 08/16/2023 MyChart Message Enc [address] [address] Claudia Magallon MD [address] [place] [phone] Hello Social History Tobacco Use Types Packs/Day Years Used Date Smoking Tobacco: Never Smokeless Tobacco: Never Comments:Counseled by Dr Madiha flores. Alcohol Use Standard Drinks/Week Comments No 0 (1 standard drink = 0.6 oz pur e alcohol) PHQ-2 Answer Date Recorded Patient Health Questionnaire-2 Score 4 08/13/2023 Sex and Gender Information Value Date Recorded Sex Assigned at Male 08/09/2023 8:17 AM DIRECTOR BIOLOGY Legal Sex Male 5:04 PM CDT Gender Identity Male 08/09/2023 8:17 AM DIRECTOR BIOLOGY Sexual Orientation Straight 08/09/2023 8: 17 AM DIRECTOR BIOLOGY documented as of this encounter Plan of Treatment Upcoming Encounters Date Type Department Care Team (Late st Contact Info) Description 08/22/2024 3:40 PM CDT [facility] [address] [place], [place] [phone] Claudia Magallon MD [address] [address] documented as of this encounter Visit Diagnoses Not on filedocumented in this encounter Additional Health Concerns Assessment Noted Time PHQ-9 Depression Total Score: 11 08/12/ 024 7:27 AM DIRECTOR BIOLOGY documented as of this encounter Care Teams Ingredient Scaler Helper Relationship Specialty Start Date End Date Claudia Magallon MD [address] [address] PCP - General INTERNAL MEDICINE 08/13/23 documented as of this encounter
[2024-08-18 21:56] VITALS: BP 132/91; PULSE 115; RESP 18; TEMP 36.8; O2SAT 97
--- NOTE | 2024-08-19 03:54 | PC.NURSE ---
Called x2 by this RN for updated set of VS w no response. Pt marked at [facility]BS on tracker.
--- OUTSIDE RECORDS SUMMARY | 2024-08-19 04:06 | XMS_ITS | Clinical Summary ---
Author Organization [facility] Address [address] [place] [address] Care Team Providers Care Rn Cvicu Name Role Phone Claudia Magallon MD Primary Care Provider [phone] Allergies Active Allergy Reactions Criticality Noted Date [...] Department Care Team Description 05/26/2024 2:20 PM MEMBER OF PARLIAMENT [facility] [place] [address] [facility] [address] [place] [address] Audrey Albrecht, MARTINE Dizziness; Vomiting 05/26/2024 Orders Only [place] [address] [facility] [address] [place] [address] Claudia Magallon MD 05/26/2024 Telephone [facility] Medical Group Multispecialty Care - [address] [facility] [address] [place] [address] Claudia Magallon MD Medication 05/26/2024 Travel from [...] Sex Assigned at Male 08/09/2023 8:17 AM MEMBER OF PARLIAMENT Legal Sex Male 5:04 PM CDT Gender Identity Male 08/09/2023 8:17 AM MEMBER OF PARLIAMENT Sexual Orientation Straight 08/09/2023 8: 17 AM MEMBER OF PARLIAMENT Last Filed Vital Signs Vital Sign Reading Time Taken Comments Blood Pressure 115/82 05/26/2024 1:51 PM MEMBER OF PARLIAMENT Pulse 75 05/26/2024 1:51 PM MEMBER OF PARLIAMENT Temperature 36.8 C (98.3 F) 05/26/2024 1:51 PM MEMBER OF PARLIAMENT Respiratory Rate 18 05/26/2024 1:51 PM MEMBER OF PARLIAMENT Oxygen Saturation 97% 05/26/2024 1:51 PM MEMBER OF PARLIAMENT Inhaled Oxygen Concentration - - Weight 93 kg (205 lb) 05/26/2024 1:51 PM MEMBER OF PARLIAMENT Height 172.7 cm (5' 8 ) 05/26/2024 1:51 PM MEMBER OF PARLIAMENT Body Mass Index 31.17 05/26/2024 1:51 PM MEMBER OF PARLIAMENT Plan of Treatment Upcoming Encounters Date Type Department Care Team (Late st Contact Info) Description 08/22/2024 3:40 PM CDT Office Visit [facility] Medical Group Multispecialty Care - [place] [address] [address] [address] [place] [address] Claudia Magallon MD 1188 [facility] [address] [place] [address] Health Maintenance Due Date Last Done Comments COVID-19 Vaccine ( season) 2024 Influenza Adult (#1) 2024 PHQ-2 (Physician [place]) 06/07/2024 10/11/2023 Annual Physical 08/12/2024 08/13/2023 DTaP, [...] HEPATITIS C ANTIBODY Routine 08/13/2023 7:35 AM MEMBER OF PARLIAMENT Annual physical exam General medical exam Establishing care with new doctor, encounter for Encounter for hepatitis C screening test for low risk patient from Last 3 Months or Most Recently Relevant to Health Maintenance Results * HEPATITIS C ANTIBODY (08/13/2023 7:35 AM MEMBER OF PARLIAMENT) HEPATITIS C AB NON-REACTI VE NON-REACT ASHWINI 08/13/2023 6:25 PM MEMBER OF PARLIAMENT [facility] Comment: ANTIBODIES TO HCV NOT DETECTED. DOES NOT EXCLUDE THE POSSIBILITY OF EXPOSURE TO HCV. 08/13/2023 7:35 AM MEMBER OF PARLIAMENT Claudia Magallon MD LABORATORY Final Result [facility] [address] [place] [address], [place] [phone] [id number] from Last 3 Months or Most Recently Relevant to Health Maintenance Insurance [address] [place] [address] [employer] Care Teams Rn Cvicu Relationship Specialty Start Date End Date Claudia Magallon MD 1188 [facility] [address] [place] [address] PCP - General INTERNAL MEDICINE 08/13/23
--- OUTSIDE RECORDS SUMMARY | 2024-08-19 04:06 | XMS_ITS | Referral Summary ---
Author Organization [address] Address [address] [place] [address] Care Team Providers Care Business Development Director Name Role Phone No, Physician Primary Care Provider [phone] Allergies No known active allergies Medications amoxicillin-cla [...] on file Legal Sex Male 7:00 PM CONTINUOUS WAVE OPERATOR Gender Identity Not on file Sexual Orientation [...] Treatment Not on file Insurance Care Teams Business Development Director Relationship Specialty Start Date End Date No, Physician PCP - General 11/01/19
--- OUTSIDE RECORDS SUMMARY | 2024-08-19 04:06 | XMS_ITS | Encounter Summary ---
Author Organization [facility] Address [address] [place] [address] Care Team Providers Care Tobacco Educator Name Role Phone Claudia Magallon MD Primary Care Provider [phone] Encounter Details Date Type Department Care Team (Late st Contact Info) Description 08/16/2023 MyChart Message Enc [address] [address] Caludia Magallon MD [address] [place] [phone] Hello Social History Tobacco Use Types Packs/Day Years Used Date Smoking Tobacco: Never Smokeless Tobacco: Never Comments:Counseled by Dr Madiha flores. Alcohol Use Standard Drinks/Week Comments No 0 (1 standard drink = 0.6 oz pur e alcohol) PHQ-2 Answer Date Recorded Patient Health Questionnaire-2 Score 4 08/13/2023 Sex and Gender Information Value Date Recorded Sex Assigned at Male 08/09/2023 8:17 AM APPLICATIONS MANAGER Legal Sex Male 5:04 PM CDT Gender Identity Male 08/09/2023 8:17 AM APPLICATIONS MANAGER Sexual Orientation Straight 08/09/2023 8: 17 AM APPLICATIONS MANAGER documented as of this encounter Plan of Treatment Upcoming Encounters Date Type Department Care Team (Late st Contact Info) Description 08/22/2024 3:40 PM CD[facility] [address] [place], [place] [address] Claudia Magallon MD [address] [address] documented as of this encounter Visit Diagnoses Not on filedocumented in this encounter Additional Health Concerns Assessment Noted Time PHQ-9 Depression Total Score: 11 08/12/ 024 7:27 AM APPLICATIONS MANAGER documented as of this encounter Care Teams Tobacco Educator Relationship Specialty Start Date End Date Claudia Magallon MD [address] [address] PCP - General INTERNAL MEDICINE 08/13/23 documented as of this encounter
--- OUTSIDE RECORDS SUMMARY | 2024-08-19 04:06 | XMS_ITS | Clinical Summary ---
Author Organization [address] Address [address] [place] [address] Care Team Providers Care Supervisor Keymodule Assembly Name Role Phone No, Physician Primary Care Provider [phone] Allergies No known active allergies Medications amoxicillin-cla [...] on file Legal Sex Male 7:00 PM SUPERVISOR METAL FURNITURE ASSEMBLY Gender Identity Not on file Sexual Orientation [...] patient's age to complete this topic Insurance [id number] [place] [address] [facility] Care Teams Supervisor Keymodule Assembly Relationship Specialty Start Date End Date No, Physician PCP - General 11/01/19
--- OUTSIDE RECORDS SUMMARY | 2024-08-19 04:06 | XMS_ITS | Encounter Summary ---
Author Organization [facility] Address [address] [place] [address] Care Team Providers Care Spanish Interpreter/Translator Name Role Phone Claudia Magallon MD Primary Care Provider [phone] Encounter Details Date Type Department Care Team (Late st Contact Info) Description 09/30/2023 MyChart Message Enc [address] [address] Claudia Magallon MD [address] [place] [address] [phone] Hello Social History Tobacco Use Types Packs/Day Years Used Date Smoking Tobacco: Never Smokeless Tobacco: Never Comments:Counseled by Dr Madiha flores. Alcohol Use Standard Drinks/Week Comments No 0 (1 standard drink = 0.6 oz pur e alcohol) PHQ-2 Answer Date Recorded Patient Health Questionnaire-2 Score 4 08/13/2023 Sex and Gender Information Value Date Recorded Sex Assigned at Male 08/09/2023 8:17 AM CUT OUT MACHINE OPERATOR Legal Sex Male 5:04 PM CDT Gender Identity Male 08/09/2023 8:17 AM CUT OUT MACHINE OPERATOR Sexual Orientation Straight 08/09/2023 8: 17 AM CUT OUT MACHINE OPERATOR documented as of this encounter Plan of Treatment Upcoming Encounters Date Type Department Care Team (Late st Contact Info) Description 08/22/2024 3:40 PM CDT [facility] [address] [address] [place], [place] [id number] Claudia Magallon MD [address] [address] documented as of this encounter Visit Diagnoses Not on filedocumented in this encounter Additional Health Concerns Assessment Noted Time PHQ-9 Depression Total Score: 11 08/12/ 024 7:27 AM CUT OUT MACHINE OPERATOR documented as of this encounter Care Teams Spanish Interpreter/Translator Relationship Specialty Start Date End Date Claudia Magallon MD [address] [address] PCP - General INTERNAL MEDICINE 08/13/23 documented as of this encounter
--- OUTSIDE RECORDS SUMMARY | 2024-08-19 04:06 | XMS_ITS | Encounter Summary ---
Author Organization [facility] Address [address] [place] [id number] Care Team Providers Care Supervisor Instrument Repair Name Role Phone Claudia Magallon MD Primary Care Provider [phone] Encounter Details Date Type Department Care Team (Late st Contact Info) Description 10/25/2023 [facility] Message Enc [address] [address] [address] [place] [address] [facility] Provider [...] Sex Assigned at Male 08/09/2023 8:17 AM PEDIATRIC GENETICIST Legal Sex Male 5:04 PM CDT Gender Identity Male 08/09/2023 8:17 AM PEDIATRIC GENETICIST Sexual Orientation Straight 08/09/2023 8: 17 AM PEDIATRIC GENETICIST documented as of this encounter Plan of Treatment Upcoming Encounters Date Type Department Care Team (Late st Contact Info) Description 08/22/2024 3:40 PM CDT [facility] [place], [place] [id number] Claudia Magallon MD [address] [place] [address] [address] [place], [place] [id number] documented as of this encounter Visit Diagnoses Not on filedocumented in this encounter Additional Health Concerns Assessment Noted Time PHQ-9 Depression Total Score: 1 10/11/19 10:23 AM CDT documented as of this encounter Care Teams Supervisor Instrument Repair Relationship Specialty Start Date End Date Claudia Magallon MD [address] [id number] PCP - General INTERNAL MEDICINE 08/13/23 documented as of this encounter
== END 2024-08-19 05:26 | disposition left against medical advice (07) ==
LOC: ANHED 08-19 04:04
PROVIDERS: PCP Internal Medicine
DX: R11.2 Nausea with vomiting, unspecified (principal)
CPT/HCPCS: 99199